=== PATIENT | male | born 1990 | race African-American/Black ===

== ENCOUNTER 2023-12-17 01:49 | Emergency (ER) | payer SELFPAY ==
[~2023-12-17] VITALS: Ht 177.8 cm; Wt 82.0 kg
[2023-12-17 02:08] VITALS: O2SAT 100
[2023-12-17 02:12] VITALS: BP 129/73; PULSE 72; RESP 18; TEMP 36.72516; O2SAT 100
== END 2023-12-17 04:47 | disposition home or self-care (01) ==
LOC: ER 01:49
DX: K40.90 Unilateral inguinal hernia, without obstruction or gangrene, not specified as recurrent (principal)
CPT/HCPCS: 99281